=== PATIENT | female | born 1975 | race Caucasian/White ===

== ENCOUNTER 2021-02-13 05:18 | Day surgery (SDC) | payer OTHER ==
[~2021-02-13] VITALS: Ht 170.2 cm; Wt 106.8 kg
[~2021-02-13 05:18] MED LIST: RINGERS SOLUTION,LACTATED 1,000 ML IV ONE
[2021-02-13] MEDS ORDERED: ACETAMINOPHEN/ISO-OSM 1000 MG/100 ML BOTTLE IV ONE (05:19)
[2021-02-13] MEDS ORDERED: ONDANSETRON HCL 4 MG/2 ML VIAL IVP ONE (05:19)
[2021-02-13] MEDS ORDERED: PROPOFOL 1% 20 ML VIAL IVP ONE (05:19)
[2021-02-13] MEDS ORDERED: ROCURONIUM BROMIDE 10 MG/ML 5 ML VIAL IVP ONE (05:19)
[2021-02-13] MEDS ORDERED: KETOROLAC TROMETHAMINE 60 MG/2 ML VIAL IM ONE (05:19)
[2021-02-13] MEDS ORDERED: FentaNYL CITRATE PF 100 MCG/2 ML VIAL IVP ONE (05:19)
[2021-02-13] MEDS ORDERED: METOCLOPRAMIDE HCL 5 MG/ML 2 ML VIAL IVP ONE (05:19)
[2021-02-13] MEDS ORDERED: SUGAMMADEX SODIUM 200 MG/2 ML VIAL IVP ONE ×3 (05:19→09:09)
[2021-02-13] MEDS ORDERED: MIDAZOLAM HCL 2 MG/2 ML VIAL IVP ONE (05:19)
[2021-02-13] MEDS ORDERED: LIDOCAINE 1% 10 ML VIAL IM ONE (05:19)
[2021-02-13] MEDS ORDERED: DEXAMETHASONE SOD PHOS 4 MG/ML VIAL IVP ONE (05:19)
[2021-02-13] MEDS ORDERED: RINGERS SOLUTION,LACTATED 1,000 ML IV ONE ×2 (05:30→09:09)
[2021-02-13 06:00] LABS: COVID AG,FIA SOURCE NASOPHARYNGEAL
[2021-02-13 06:03] LABS: BASOPHILS % (AUTO) 0.8 % (0.0-2.0); HEMATOCRIT 25.6 % (36-46); HEMOGLOBIN 7.9 g/dL (12.0-16.0); LYMPHOCYTES # (AUTO) 1.9 K/uL (1.0-4.8); MEAN CORPUSCULAR HEMOGLOBIN 22.7 pg (26.0-34.0); MEAN CORPUSCULAR HGB CONC 30.9 G/dL (31.0-37.0); MEAN CORPUSCULAR VOLUME 74 fL (80-100); MONOCYTES # (AUTO) 0.5 K/uL (0.1-1.0); MONOCYTES % (AUTO) 5.5 % (2.0-9.0); NEUTROPHILS % (AUTO) 67.7 % (40.0-70.0); PLATELET COUNT (AUTO) 326 K/uL (150-450); RED BLOOD CELL COUNT(AUTO) 3.48 MIL/uL (4.00-5.20); RED CELL DISTRIBUTION WIDTH 18.2 % (11.5-14.5)
[2021-02-13] MEDS ORDERED: BUPIVACAINE HCL/PF 0.25% 30 ML VIAL ONE (06:43)
[2021-02-13] MEDS ORDERED: SODIUM CL IRRIG SOLN BAG 6,000 ML IRRIG ONE (06:43)
[2021-02-13] MEDS ORDERED: ATOR10TA69 PO (07:16)
[2021-02-13] MEDS ORDERED: AMLO5TAB66 PO (07:16)
[2021-02-13] MEDS ORDERED: FERR-72 PO (07:16)
[2021-02-13] MEDS ORDERED: METO25 PO (07:16)
[2021-02-13] MEDS ORDERED: LOSA50TA37 PO (07:16)
[2021-02-13] MEDS ORDERED: LEVO25TA9 PO (07:16)
[2021-02-13 07:48] LABS: PATHOLOGY REVIEW, DIFF M
[2021-02-13] MEDS ORDERED: ACETAMINOPHEN 1000 MG/ISO-OSM 100 ML IV ONE (08:27)
[2021-02-13] MEDS ORDERED: HYDROmorphone 2 MG/ML VIAL IVP PRN (08:45)
[2021-02-13] MEDS ORDERED: MEPERIDINE-PF 25 MG/ML VIAL IVP PRN (08:45)
[2021-02-13] MEDS ORDERED: FentaNYL CITRATE PF 100 MCG/2 ML VIAL IVP PRN (08:45)
[2021-02-13] MEDS ORDERED: HYDROmorphone 2 MG/ML VIAL ONE (10:45)
[2021-02-13] MEDS ORDERED: HYDROCODONE/ACETAMINOPHEN 5-325 MG TABLET ONE (11:35)
[2021-02-13] MEDS ORDERED: FISH1 PO (11:42)
[2021-02-13] MEDS ORDERED: HYDROCODONE/ACETAMINOPHEN 5-325 MG TABLET PO ONE (11:45)
[2021-02-13] MEDS ORDERED: HYDROCODONE/ACETAMINOPHEN 10-325 MG TABLET PO ONE (11:45)
[2021-02-13] MEDS ORDERED: OXYGEN THERAPY IH SCH (20:00)
== END 2021-02-13 12:00 | disposition home or self-care (01) ==
LOC: SURGERY 05:18
PROVIDERS: ATTEND Student in an Organized Health Care Education/Training Program
DX: N83.291 Other ovarian cyst, right side (principal); N83.292 Other ovarian cyst, left side; E78.00 Pure hypercholesterolemia, unspecified; N93.9 Abnormal uterine and vaginal bleeding, unspecified; I10 Essential (primary) hypertension; E03.9 Hypothyroidism, unspecified; Z98.890 Other specified postprocedural states; Z87.01 Personal history of pneumonia (recurrent); Z98.51 Tubal ligation status; Z79.899 Other long term (current) drug therapy
CPT/HCPCS: 36415; 58558; 58661; 84703; 85025; 86850; 86900; 86901; 86923; 87426; 88305; C9803; J0131; J0690; J1100; J1170; J1885; J2250; J2405; J2704; J2765; J3010; J3490 ×3; J7120; Q9967